=== PATIENT | male | born 1980 | race Caucasian/White ===

== ENCOUNTER 2023-06-27 13:31 | Inpatient (IN) | payer OTHER ==
[2023-06-27] MEDS ORDERED: NALOXONE 0.4 MG/ML 1 ML VIAL IV PRN (13:45)
--- NOTE | 2023-06-27 13:45 | ED ---
General Adult HPI - General Chief complaint: Alcohol Stated complaint: ETOH Time Seen by Provider: 06/27/23 13:35 Source: patient, RN/MD, EMS, RN notes reviewed, old records reviewed Mode of arrival: EMS Limitations: no limitations - History of Present Illness Initial comments: Patient is a pleasant 43-year-old male present to the emergency department as a transfer from [facility]. Patient admits to drinking alcohol heavy daily. Patient there was found to have low magnesium at 1.2 and this has been replaced. Patient did have a reported unresponsive episode prior to going to the hospital. Patient denies any significant injury. Transferring physician did have concern for patient going to torsades on the monitor. Review of Systems ROS Statement: Those systems with pertinent positive or pertinent negative responses have been documented in the HPI. ROS Other: All systems not noted in ROS Statement are negative. Constitutional: Denies: fever Eyes: Denies: eye pain ENT: Denies: ear pain Respiratory: Denies: cough, dyspnea Cardiovascular: Denies: chest pain Gastrointestinal: Denies: abdominal pain Neurological: Denies: weakness General Exam Limitations: no limitations General appearance: alert, in no apparent distress Head exam: Present: atraumatic Eye exam: Present: scleral icterus Neck exam: Present: normal inspection. Absent: tenderness Respiratory exam: Present: normal lung sounds bilaterally Cardiovascular Exam: Present: tachycardia GI/Abdominal exam: Present: soft. Absent: tenderness Extremities exam: Present: normal inspection, full ROM. Absent: tenderness Neurological exam: Present: alert, oriented X3, CN II-XII intact. Absent: motor sensory deficit Psychiatric exam: Present: normal affect, normal mood Skin exam: Present: normal color Course Vital Signs 06/27/23 13:32 Temperature 99.5 F Pulse Rate 119 H Respiratory 12 Rate Blood Pressure 147/132 O2 Sat by Pulse 100 Oximetry EKG Findings - EKG Results: EKG: interpreted by ERMD (Inferior and lateral T wave inversion), sinus rhythm, normal axis, normal QRS Medical Decision Making - Medical Decision Making Was pt. sent in by a medical professional or institution (, PA, DAY HABILITATION SUPERVISOR, urgent care, hospital, or senior living...) When possible be specific @ -Patient was transferred from [facility] for level of care. Did you speak to anyone other than the patient for history (EMS, parent, family, police, friend...)? What history was obtained from this source @ -Transferring physician Dr. Blevins Did you review nursing and triage notes (agree or disagree)? Why? @ -I reviewed and agree with nursing and triage notes Were old charts reviewed (outside hosp., previous admission, EMS record, old EKG, old radiological studies, urgent care reports/EKG's, senior living records)? Report findings @ -Chart reviewed from [facility] including labs and imaging results and history Differential Diagnosis (chest pain, altered mental status, abdominal pain women, abdominal pain men, vaginal bleeding, weakness, fever, dyspnea, syncope, headache, dizziness, GI bleed, back pain, seizure, CVA, palpatations, mental health, musculoskeletal)? @ -Differential Weakness: Hypoglycemia, shock, sepsis, hyponatremia, anemia, infection, DE, ETOH, adverse medicine reaction, overdose, stroke, this is not meant to be an all-inclusive list. EKG interpreted by me (3pts min.). @ -As above X-rays interpreted by me (1pt min.). @ -None done CT interpreted by me (1pt min.). @ -None done U/S interpreted by me (1pt. min.). @ -None done What testing was considered but not performed or refused? (CT, X-rays, U/S, labs)? Why? @ -Repeat labs will be ordered What meds were considered but not given or refused? Why? @ -None Did you discuss the management of the patient with other professionals (professionals i.e. , PA, DAY HABILITATION SUPERVISOR, lab, RT, psych nurse, social service coordinator, pad machine feeder, teacher, railroad police officer, case specialist)? Give summary @ -Sound physician practitioner Jong who will admit covering hospital call Was smoking cessation discussed for >3mins.? @ -No Was critical care preformed (if so, how long)? @ -No Were there social determinants of health that impacted care today? How? (Homelessness, low income, unemployed, alcoholism, drug addiction, transportation, low edu. Level, literacy, decrease access to med. care, long-term, rehab)? @ -No Was there de-escalation of care discussed even if they declined (Discuss DNR or withdrawal of care, Hospice)? DNR status @ -No What co-morbidities impacted this encounter? (DM, HTN, Smoking, COPD, CAD, Cancer, CVA, ARF, Chemo, Hep., AIDS, mental health diagnosis, sleep apnea, mor bid obesity)? @ -History of alcohol use Was patient admitted / discharged? Hospital course, mention meds given and route, prescriptions, significant lab abnormalities, going to OR and other pertinent info. @ -Patient transferred for level of care. Chart reviewed. Labs will be redrawn. Patient will be admitted. Admission orders written. Undiagnosed new problem with uncertain prognosis? @ -No Drug Therapy requiring intensive monitoring for toxicity (Heparin, Nitro, Insulin, Cardizem)? @ -No Were any procedures done? @ -No Diagnosis/symptom? @ -Unresponsive episode, hypomagnesemia, hypokalemia, alcohol withdrawal Acute, or Chronic, or Acute on Chronic? @ -Acute, acute, acute, acute Uncomplicated (without systemic symptoms) or Complicated (systemic symptoms)? @ -Complicated with reported torsades and transaminitis Side effects of treatment? @ -No Exacerbation, Progression, or Severe Exacerbation? @ -No Poses a threat to life or bodily function? How? (Chest pain, USA, DE, pneumonia, PE, COPD, DKA, ARF, appy, cholecystitis, CVA, Diverticulitis, Homicidal, Suicidal, threat to staff... and all critical care pts) @ -No Disposition Clinical Impression: Hypomagnesemia Disposition: ADMITTED IP TO THIS HOSP Condition: Serious Is patient prescribed a controlled substance at d/c from ED?: No Referrals: Hugo Spangler MD [Primary Care Provider] - 1-2 days Time of Disposition: 13:45
[2023-06-27] MEDS ORDERED: LORazepam 1 MG TAB PO PRN ×2 (13:46→17:51)
[2023-06-27] MEDS ORDERED: LORazepam 2 MG/ML INJ IV PRN (13:46)
[2023-06-27] MEDS: SODIUM CHLORIDE 0.9% 1,000 ML IV SCH (14:00)
[2023-06-27 14:26] LABS: Anisocytosis Slight; Basophils % (A) 1 %; Eosinophils # (A) 0.1 k/uL (0-0.7); Eosinophils % (A) 1 %; HCT 34.6 % (39.0-53.0); HGB 12.6 gm/dL (13.0-17.5); Hyperchromasia Moderate; Lymphocytes # (A) 1.3 k/uL (1.0-4.8); Lymphocytes % (A) 24 %; MCH 31.2 pg (25.0-35.0); MCHC 36.5 g/dL (31.0-37.0); MCV 85.5 fL (80.0-100.0); Mean Platelet Volume 9.1; Monocytes # (A) 0.4 k/uL (0-1.0); Monocytes % (A) 7 %; Neutrophils # (A) 3.5 k/uL (1.3-7.7); Neutrophils % (A) 66 %; Poikilocytosis Slight; RBC 4.04 m/uL (4.30-5.90); RDW 16.6 % (11.5-15.5); WBC 5.3 k/uL (3.8-10.6)
[2023-06-27 14:43] LABS: ALT 44 U/L (4-49); AST 144 U/L (17-59); African American GFR (CKD) >90 (>60 ml/min/1.73 sqM); Albumin 3.1 g/dL (3.5-5.0); Alkaline Phosphatase 98 U/L (38-126); Anion Gap 8 mmol/L; Blood Urea Nitrogen 12 mg/dL (9-20); Calcium 7.2 mg/dL (8.4-10.2); Carbon Dioxide 32 mmol/L (22-30); Chloride 94 mmol/L (98-107); Glucose 113 mg/dL (74-99); Magnesium 2.6 mg/dL (1.6-2.3); Non-African American GFR(CKD) >90 (>60 ml/min/1.73 sqM); Phosphorus 2.4 mg/dL (2.5-4.5); Sodium 134 mmol/L (137-145); Total Bilirubin 4.4 mg/dL (0.2-1.3); Total Protein 6.2 g/dL (6.3-8.2)
--- NOTE | 2023-06-27 14:58 | P.HPIM ---
History of Present Illness H&P Date: 06/27/23 History of Presenting Illness: Patient is a very pleasant 43-year-old male with a past medical history of alcohol abuse reportedly drinking a minimum of one fifth daily over the last 20 years, alcohol withdrawal seizures and hypertension. Patient was transferred to our facility from [facility] secondary to alcohol withdraw, hypomagnesemia with magnesium of 1.2, and severe hypokalemia with reported potassium of 2. Patient presented to their facility initially after an episode of loss of consciousness concerning for alcohol withdrawal seizure. Patient's significant other at bedside reports patient has known history of alcohol withdrawal seizures and that she personally witnessed seizure activity prior to "convincing him into going to the hospital" . Per ED report, [facility] also reported concerns that patient had episode of torsades on classroom monitor and was transferred to our facility for further evaluation. Rhythm strip was not available in transfer documentation. Upon arrival to our facility, patient underwent evaluation in the emergency department. Vital signs upon arrival show blood pressure 147/132, heart rate 119, respiratory rate 12, temp 99.5 F, and SpO2 of 100% on room air. EKG completed showing normal sinus rhythm at 91 bpm with diffuse T wave abnormalities in inferior and lateral leads. Labs completed and reviewed. CBC showing bicytopenia with hemoglobin of 12.6 and platelet count of 57. BMP showing hyponatremia with sodium of 134, hypokalemia with potassium of 2.5, hypochloremia with chloride of 94, and hypercarbia with bicarb of 32. Blood glucose 113. Calcium 7.2 with albumin of 3.1 with a corrected calcium of 7.9. Liver profile showing hyperbilirubinemia with total bili of 4.4 and elevated AST of 144. Patient currently resting comfortably and denies having any complaints at this time including headache, lightheadedness, dizziness, chest pain, palpitations, shortness of breath, nausea, vomiting, diaphoresis, tremors, or experiencing any numbness/tingling/weakness in his extremities. Patient admitted under our services for electrolyte abnormalities and acute alcohol withdraw. Transfer documentation reviewed from [facility] Labs completed and reviewed. CBC showing WBC count of 6.8, hemoglobin 14.3, and platelet count of 73. Coagulation profile showing elevated PT of 12.1 and INR of 1.6. BMP showing hyponatremia with sodium of 132, hypokalemia with potassium of 2.0, chloride of 85, and bicarb of 34. Liver profile showing elevated alkaline phosphatase of 116, AST of 183, and total bili of 5.3. Troponin less than 0.05. Ethanol 0 and EtOH of 0.000. EKG completed at their facility showing sinus rhythm at 90 bpm. Repeat EKG completed at their facility showing sinus tachycardia at 103 bpm Review of systems: Pertinent positives and negatives as discussed in HPI, a complete review of systems was performed and all other systems are negative. Physical exam: Vital signs reviewed and stable. General: Nontoxic, no distress and appears stated age. Derm: Skin warm and dry, normal coloration for ethnicity. Head: Atraumatic, normocephalic and symmetric. Eyes: EOMs intact, no lid lag, and anicteric sclera Mouth: no lip lesions, mucus membranes moist Cardiovascular: regular rate and rhythm with normal S1S2, no murmur, positive posterior tibial pulses bilaterally, and cap refill < 2 seconds. Lungs: Respirations even, regular, and unlabored on room air. Lungs CTA bilaterally, no rhonchi, no rales, no wheezing, and no accessory muscle usage. Abdominal: soft, nontender to palpation, no guarding, no appreciable org anomegaly Ext: ROM intact. No gross muscle atrophy, no edema, no contractures Neuro: Speech clear, face symmetrical and CN II-XII grossly intact with no noted focal neuro deficits Psych: Alert and oriented to person, place, time, and situation. Appropriate and pleasant affect. Assessment and Plan of Care: Alcohol withdrawal in active alcoholic with concerns of alcohol withdrawal seizure Severe hypokalemia, secondary to daily alcohol abuse Hypomagnesemia, secondary to daily alcohol abuse Bicytopenia with anemia and thrombocytopenia. Hyperbilirubinemia with elevated liver enzymes, likely secondary to daily alcohol abuse Concern for arrhythmia -Order placed for monitoring of CIWA scores and patient to be medicated with Ativan 0.5 mg every 4 hours as needed for CIWA score of 4-5, Ativan 1 mg every 4 hours for CIWA score of 6-7, Ativan 2 mg every 3 hours CIWA score of 8-9, and Ativan 2 mg every 2 hours forr CIWA score of 10 or greater. -Continuous IV hydration. -Thiamine 100 mg daily, Multivitamin daily and Folate 1 mg daily -Seizure, fall, aspiration, and elopement precautions in place. -Urine drug screen -Continued close monitoring of electrolytes and replace as needed. -Telemetry monitoring. Hypertension Continue daily medication regimen with carvedilol 12.5 mg twice daily and lisinopril 20 mg daily. Data and imaging reviewed: As stated above in HPI The patient is admitted with an anticipated greater than 2 midnight stay for evaluation of alcohol withdraw and severe electrolyte abnormalities CODE STATUS: Full code DVT prophylaxis: Lovenox Anticipated discharge date: Clinical course to determine Anticipated discharge place: Home versus inpatient drug and alcohol rehabilitation facility Patient was seen independently by Nurse Practitioner. This document was prepared using [employer] dictation software. Please allow for errors in aircraft maintenance technician while rare they do occur. Jong Sharif NP rendered care for this patient independently, reviewed the findings and plan as documented in the note above. I did not physically speak with or examine the patient on this date Medications and Allergies Home Medications Medication Instructions Recorded Confirmed Type carvediloL 12.5 mg PO DIRECTED 06/27/23 06/27/23 History lisinopriL [Prinivil] 20 mg PO DIRECTED 06/27/23 06/27/23 History Allergies Allergy/AdvReac Type Severity Reaction Status Date / Time No Known Allergies Allergy Verified 06/27/23 14:36 Physical Exam Osteopathic Statement: *. No significant issues noted on an osteopathic structural exam other than those noted in the History and Physical/Consult. Vitals: Vital Signs Temp Pulse Resp BP Pulse Ox 06/27/23 13:32 99.5 F 119 H 12 147/132 100 Intake and Output 06/26/23 06/27/23 06/27/23 22:59 06:59 14:59 Other: Weight 92.986 kg Results CBC & Chem 7: 06/27/23 14:07 06/27/23 14:07 Labs: Abnormal Lab Results - Last 24 Hours (Table) 06/27/23 Range/Units 14:07 RBC 4.04 L (4.30-5.90) m/uL Hgb 12.6 L (13.0-17.5) gm/dL Hct 34.6 L (39.0-53.0) % RDW 16.6 H (11.5-15.5) %
[2023-06-27 15:01] LABS: Potassium 2.5 mmol/L (3.5-5.1)
[2023-06-27] MEDS ORDERED: Potassium Replacement Protocol 1 EACH MISC MISCELLANE PRN (15:02)
[2023-06-27] MEDS: carvediloL 12.5 MG TAB PO SCH (15:22)
[2023-06-27] MEDS: lisinopriL 20 MG TAB PO SCH (15:22)
[2023-06-27] MEDS: FAMOTIDINE 20 MG TAB PO SCH (15:22)
[2023-06-27] MEDS: POTASSIUM CHLORIDE 10 MEQ in WATER FOR INJECTION 1 100ML.BAG IVPB SCH (15:23)
[2023-06-27 15:32] LABS: Ovalocytes Present
[2023-06-27 15:33] LABS: Platelet Count 57 k/uL (150-450)
[2023-06-27] MEDS: POTASSIUM CHLORIDE ER 20 MEQ TAB.ER PO STA (16:41)
[2023-06-27] MEDS: CALCIUM GLUCONATE IN NACL 1 GM in SALINE 1 100ML.BAG IVPB ONE (20:25)
[2023-06-27] MEDS: LORazepam 0.5 MG TAB PO PRN (20:25)
[2023-06-27] MEDS: HYDROcodone/APAP 5-325MG 1 EACH TAB PO PRN (23:12)
[2023-06-27] MEDS: LORazepam 1 MG TAB PO PRN (23:14)
[2023-06-28] MEDS: LORazepam 1 MG TAB PO PRN (03:12)
[2023-06-28 11:32] LABS: ALT 41 U/L (4-49); AST 117 U/L (17-59); African American GFR (CKD) >90 (>60 ml/min/1.73 sqM); Albumin 2.6 g/dL (3.5-5.0); Alkaline Phosphatase 74 U/L (38-126); Anion Gap 1 mmol/L; Blood Urea Nitrogen 11 mg/dL (9-20); Calcium 7.6 mg/dL (8.4-10.2); Carbon Dioxide 36 mmol/L (22-30); Chloride 100 mmol/L (98-107); Glucose 94 mg/dL (74-99); Magnesium 2.1 mg/dL (1.6-2.3); Non-African American GFR(CKD) >90 (>60 ml/min/1.73 sqM); Sodium 137 mmol/L (137-145); Total Bilirubin 3.6 mg/dL (0.2-1.3); Total Protein 5.2 g/dL (6.3-8.2)
[2023-06-28 11:42] LABS: Anisocytosis Slight; Basophils % (A) 1 %; Eosinophils # (A) 0.1 k/uL (0-0.7); Eosinophils % (A) 2 %; HCT 31.2 % (39.0-53.0); HGB 10.7 gm/dL (13.0-17.5); Lymphocytes # (A) 1.2 k/uL (1.0-4.8); Lymphocytes % (A) 39 %; MCH 30.9 pg (25.0-35.0); MCHC 34.4 g/dL (31.0-37.0); Mean Platelet Volume 9.7; Monocytes # (A) 0.2 k/uL (0-1.0); Monocytes % (A) 6 %; Neutrophils # (A) 1.5 k/uL (1.3-7.7); Neutrophils % (A) 51 %; Poikilocytosis Slight; RBC 3.46 m/uL (4.30-5.90); RDW 16.5 % (11.5-15.5)
[2023-06-28 11:45] LABS: Platelet Count 41 k/uL (150-450)
[2023-06-28] MEDS: ENOXAPARIN 40 MG/0.4 ML SYRINGE SQ SCH (11:53)
[2023-06-28] MEDS: THIAMINE 100 MG TAB PO SCH (12:01)
[2023-06-28] MEDS: MULTIVITAMINS, THERA 1 EACH TAB PO SCH (12:01)
[2023-06-28] MEDS: chlordiazePOXIDE 25 MG CAP PO SCH (12:01)
[2023-06-28] MEDS: FOLIC ACID 1 MG TAB PO SCH (12:01)
[2023-06-28 12:10] LABS: Potassium 2.5 mmol/L (3.5-5.1)
--- NOTE | 2023-06-28 14:44 | P.PN ---
Subjective Progress Note Date: 06/28/23 History of Presenting Illness: Patient is a very pleasant 43-year-old male with a past medical history of alcohol abuse reportedly drinking a minimum of one fifth daily over the last 20 years, alcohol withdrawal seizures and hypertension. Patient was transferred to our facility from [facility] secondary to alcohol withdraw, hypomagnesemia with magnesium of 1.2, and severe hypokalemia with reported potassium of 2. Patient presented to their facility initially after an episode of loss of consciousness concerning for alcohol withdrawal seizure. Patient's significant other at bedside reports patient has known history of alcohol withdrawal seizures and that she personally witnessed seizure activity prior to "convincing him into going to the hospital" . Per ED report, [facility] also reported concerns that patient had episode of torsades on hall monitor and was transferred to our facility for further evaluation. Rhythm strip was not available in transfer documentation. Upon arrival to our facility, patient underwent evaluation in the emergency department. Vital signs upon arrival show blood pressure 147/132, heart rate 119, respiratory rate 12, temp 99.5 F, and SpO2 of 100% on room air. EKG completed showing normal sinus rhythm at 91 bpm with diffuse T wave abnormalities in inferior and lateral leads. Labs completed and reviewed. CBC showing bicytopenia with hemoglobin of 12.6 and platelet count of 57. BMP showing hyponatremia with sodium of 134, hypokalemia with potassium of 2.5, hypochloremia with chloride of 94, and hypercarbia with bicarb of 32. Blood glucose 113. Calcium 7.2 with albumin of 3.1 with a corrected calcium of 7.9. Liver profile showing hyperbilirubinemia with total bili of 4.4 and elevated AST of 144. Patient currently resting comfortably and denies having any complaints at this time including headache, lightheadedness, dizziness, chest pain, palpitations, shortness of breath, nausea, vomiting, diaphoresis, tremors, or experiencing any numbness/tingling/weakness in his extremities. Patient admitted under our services for electrolyte abnormalities and acute alcohol withdraw. Transfer documentation reviewed from [facility] Labs completed and reviewed. CBC showing WBC count of 6.8, hemoglobin 14.3, and platelet count of 73. Coagulation profile showing elevated PT of 12.1 and INR of 1.6. BMP showing hyponatremia with sodium of 132, hypokalemia with potassium of 2.0, chloride of 85, and bicarb of 34. Liver profile showing el evated alkaline phosphatase of 116, AST of 183, and total bili of 5.3. Troponin less than 0.05. Ethanol 0 and EtOH of 0.000. EKG completed at their facility showing sinus rhythm at 90 bpm. Repeat EKG completed at their facility showing sinus tachycardia at 103 bpm Physical exam: Vital signs reviewed and stable. General: Nontoxic, no distress and appears stated age. Derm: Skin warm and dry, normal coloration for ethnicity. Head: Atraumatic, normocephalic and symmetric. Eyes: EOMs intact, no lid lag, and anicteric sclera Mouth: no lip lesions, mucus membranes moist Cardiovascular: regular rate and rhythm with normal S1S2, no murmur, positive posterior tibial pulses bilaterally, and cap refill < 2 seconds. Lungs: Respirations even, regular, and unlabored on room air. Lungs CTA bilaterally, no rhonchi, no rales, no wheezing, and no accessory muscle usage. Abdominal: soft, nontender to palpation, no guarding, no appreciable organ omegaly Ext: ROM intact. No gross muscle atrophy, no edema, no contractures Neuro: Speech clear, face symmetrical and CN II-XII grossly intact with no noted focal neuro deficits Psych: Alert and oriented to person, place, time, and situation. Appropriate and pleasant affect. Assessment and Plan of Care: Alcohol withdrawal in active alcoholic with concerns of alcohol withdrawal seizure Severe hypokalemia, secondary to daily alcohol abuse Hypomagnesemia, secondary to daily alcohol abuse Pancytopenia, secondary to daily alcohol abuse Hyperbilirubinemia with elevated liver enzymes, likely secondary to daily alcohol abuse Concern for possible arrhythmia -Continue monitoring of CIWA scores and patient to be medicated with Ativan 0.5 mg every 4 hours as needed for CIWA score of 4-5, Ativan 1 mg every 4 hours for CIWA score of 6-7, Ativan 2 mg every 3 hours CIWA score of 8-9, and Ativan 2 mg every 2 hours forr CIWA score of 10 or greater. Current CIWA 8. -Continuous IV hydration. -Thiamine 100 mg daily, Multivitamin daily and Folate 1 mg daily -Seizure, fall, aspiration, and elopement precautions in place. -Potassium was 2.5 orders placed for K-Dur 40 mEq p.o. x 1 dose and potassium chloride 10 mEq IVPB x 4 doses.. -Continued close monitoring of electrolytes and replace as needed. -Telemetry monitoring. Hypertension Continue daily medication regimen with carvedilol 12.5 mg twice daily and lisinopril 20 mg daily. Data and imaging reviewed: Vital signs reviewed. Blood pressure 121/89, heart rate 92, respiratory rate 17, temp 98.4 F, and SpO2 of 96% on room air. Morning labs completed and reviewed. CBC showing pancytopenia with WBC count of 3.0, hemoglobin 10.7, and platelet count of 41. BMP showing persistent hypokalemia with potassium of 2.5 and hypercarbia with bicarb of 36. Calcium low at 7.6 and albumin of 2.6 with corrected calcium of 8.7. Liver profile showing continued elevation but improving hyperbilirubinemia with total bili of 3.6 and AST of 117. CODE STATUS: Full code DVT prophylaxis: Lovenox Anticipated discharge date: Clinical course to determine Anticipated discharge place: Home versus inpatient drug and alcohol rehabilitation facility Patient was seen independently by Nurse Practitioner. This document was prepared using [employer] dictation software. Please allow for errors in watch electrician while rare they do occur. I reviewed the documentation as provided by the NGOZI above, who is the original author of this note. I agree with the documented assessment and plan, with the following changes: none Objective - Vital Signs Vital signs: Vital Signs Temp 98.1 F 06/28/23 04:00 Pulse 96 06/28/23 04:00 Resp 19 06/28/23 04:00 BP 100/70 06/28/23 04:00 Pulse Ox 98 06/28/23 04:00 FiO2 Intake & Output 06/27/23 06/28/23 06/28/23 18:59 06:59 18:59 Output Total 420 Balance -420 Weight 92.986 kg Output: Urine 420 Other: Voiding Method Urinal # Voids 1 1 # Bowel Movements 1 - Labs CBC & Chem 7: 06/28/23 10:12 06/28/23 10:12 Labs: Abnormal Lab Results - Last 24 Hours (Table) 06/27/23 06/27/23 Range/Units 14:07 14:07 RBC 4.04 L (4.30-5.90) m/uL Hgb 12.6 L (13.0-17.5) gm/dL Hct 34.6 L (39.0-53.0) % RDW 16.6 H (11.5-15.5) % Plt Count 57 L (150-450) k/uL Sodium 134 L (137-145) mmol/L Potassium 2.5 L* (3.5-5.1) mmol/L Chloride 94 L (98-107) mmol/L Carbon Dioxide 32 H (22-30) mmol/L Glucose 113 H (74-99) mg/dL Calcium 7.2 L (8.4-10.2) mg/dL Phosphorus 2.4 L (2.5-4.5) mg/dL Magnesium 2.6 H (1.6-2.3) mg/dL Total Bilirubin 4.4 H (0.2-1.3) mg/dL AST 144 H (17-59) U/L Total Protein 6.2 L (6.3-8.2) g/dL Albumin 3.1 L (3.5-5.0) g/dL
[2023-06-28] MEDS: POTASSIUM CHLORIDE ER 20 MEQ TAB.ER PO STA (15:09)
[2023-06-28] MEDS: POTASSIUM CHLORIDE 10 MEQ in WATER FOR INJECTION 1 100ML.BAG IVPB SCH (15:10)
[2023-06-29 09:28] LABS: Anisocytosis Slight; HCT 31.5 % (39.0-53.0); HGB 10.8 gm/dL (13.0-17.5); MCH 31.5 pg (25.0-35.0); MCHC 34.1 g/dL (31.0-37.0); MCV 92.4 fL (80.0-100.0); Mean Platelet Volume 9.5; Poikilocytosis Slight; RBC 3.41 m/uL (4.30-5.90); RDW 16.5 % (11.5-15.5); WBC 2.9 k/uL (3.8-10.6)
[2023-06-29 09:34] LABS: Platelet Count 55 k/uL (150-450)
[2023-06-29 09:36] LABS: ALT 58 U/L (4-49); AST 150 U/L (17-59); African American GFR (CKD) >90 (>60 ml/min/1.73 sqM); Albumin 2.8 g/dL (3.5-5.0); Alkaline Phosphatase 85 U/L (38-126); Anion Gap 5 mmol/L; Blood Urea Nitrogen 16 mg/dL (9-20); Carbon Dioxide 28 mmol/L (22-30); Chloride 101 mmol/L (98-107); Glucose 133 mg/dL (74-99); Magnesium 1.5 mg/dL (1.6-2.3); Non-African American GFR(CKD) >90 (>60 ml/min/1.73 sqM); Sodium 134 mmol/L (137-145); Total Bilirubin 2.8 mg/dL (0.2-1.3); Total Protein 5.5 g/dL (6.3-8.2)
[2023-06-29 09:42] LABS: Potassium 2.6 mmol/L (3.5-5.1)
[2023-06-29] MEDS: POTASSIUM CHLORIDE ER 20 MEQ TAB.ER PO STA (10:41)
[2023-06-29] MEDS: MAGNESIUM SULFATE-D5W PMX 1 GM in DEXTROSE/WATER 1 100ML.BAG IVPB SCH (10:41)
[2023-06-29] MEDS: POTASSIUM CHLORIDE 10 MEQ in WATER FOR INJECTION 1 100ML.BAG IVPB SCH (12:57)
--- NOTE | 2023-06-29 17:46 | P.PN ---
Subjective Progress Note Date: 06/29/23 Hospital Course: Patient is a very pleasant 43-year-old male with a past medical history of alcohol abuse reportedly drinking a minimum of one fifth daily over the last 20 years, alcohol withdrawal seizures and hypertension. Patient was transferred to our facility from [facility] secondary to alcohol withdraw, hypomagnesemia with magnesium of 1.2, and severe hypokalemia with reported potassium of 2. Patient presented to their facility initially after an episode of loss of consciousness concerning for alcohol withdrawal seizure. Patient's significant other at bedside reports patient has known history of alcohol withdrawal seizures and that she personally witnessed seizure activity prior to "convincing him into going to the hospital" . 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 Rhythm strip was not available in transfer documentation. Upon arrival to our facility, patient underwent evaluation in the emergency department. Vital signs upon arrival show blood pressure 147/132, heart rate 119, respiratory rate 12, temp 99.5 F, and SpO2 of 100% on room air. EKG completed showing normal sinus rhythm at 91 bpm with diffuse T wave abnormalities in inferior and lateral leads. Labs completed and reviewed. CBC showing bicytopenia with hemoglobin of 12.6 and platelet count of 57. BMP showing hyponatremia with sodium of 134, hypokalemia with potassium of 2.5, hypochloremia with chloride of 94, and hypercarbia with bicarb of 32. Blood glucose 113. Calcium 7.2 with albumin of 3.1 with a corrected calcium of 7.9. Liver profile showing hyperbilirubinemia with total bili of 4.4 and elevated AST of 144. Patient currently resting comfortably and denies having any complaints at this time including headache, lightheadedness, dizziness, chest pain, palpitations, shortness of breath, nausea, vomiting, diaphoresis, tremors, or experiencing any numbness/tingling/weakness in his extremities. Patient admitted under our services for electrolyte abnormalities and acute alcohol withdraw. Transfer documentation reviewed from [facility] Labs completed and reviewed. CBC showing WBC count of 6.8, hemoglobin 14.3, and platelet count of 73. Coagulation profile showing elevated PT of 12.1 and INR of 1.6. BMP showing hyponatremia with sodium of 132, hypokalemia with potassium of 2.0, chloride of 85, and bicarb of 34. Liver profile showing elevated alkaline phosphatase of 116, AST of 183, and total bili of 5.3. Troponin less than 0.05. Ethanol 0 and EtOH of 0.000. EKG completed at their facility showing sinus rhythm at 90 bpm. Repeat EKG completed at their facility showing sinus tachycardia at 103 bpm Physical exam: Vital signs reviewed and stable. General: Nontoxic, no distress and appears stated age. Derm: Skin warm and dry, normal coloration for ethnicity. Head: Atraumatic, normocephalic and symmetric. Eyes: EOMs intact, no lid lag, and anicteric sclera Mouth: no lip lesions, mucus membranes moist Cardiovascular: regular rate and rhythm with normal S1S2, no murmur, positive posterior tibial pulses bilaterally, and cap refill < 2 seconds. Lungs: Respirations even, regular, and unlabored on room air. Lungs CTA bilaterally, no rhonchi, no rales, no wheezing, and no accessory muscle usage. Abdominal: soft, nontender to palpation, no guarding, no appreciable organomegaly Ext: ROM intact. No gross muscle atrophy, no edema, no contractures Neuro: Speech clear, face symmetrical and CN II-XII grossly intact with no noted focal neuro deficits Psych: Alert and oriented to person, place, time, and situation. Appropriate and pleasant affect. Assessment and Plan of Care: Alcohol withdrawal in active alcoholic with concerns of alcohol withdrawal seizure Severe hypokalemia, secondary to daily alcohol abuse Hypomagnesemia, secondary to daily alcohol abuse Pancytopenia, secondary to daily alcohol abuse Hyperbilirubinemia with elevated liver enzymes, likely secondary to daily alcohol abuse Concern for possible arrhythmia -Continue monitoring of CIWA scores and patient to be medicated with Ativan 0.5 mg every 4 hours as needed for CIWA score of 4-5, Ativan 1 mg every 4 hours for CIWA score of 6-7, Ativan 2 mg every 3 hours CIWA score of 8-9, and Ativan 2 mg every 2 hours forr CIWA score of 10 or greater. -Continuous IV hydration. -Thiamine 100 mg daily, Multivitamin daily and Folate 1 mg daily -Seizure, fall, aspiration, and elopement precautions in place. -Potassium was 2.6 orders placed for K-Dur 40 mEq p.o. x 1 dose and potassium chloride 10 mEq IVPB x 4 doses.. -Magnesium 1.5, orders placed for mag sulfate 2 g IVPB -Continued close monitoring of electrolytes and replace as needed. -Telemetry monitoring. Hypertension Continue daily medication regimen with carvedilol 12.5 mg twice daily and lisinopril 20 mg daily. Data and imaging reviewed: Vital signs reviewed. Blood pressure elevated this morning at 163/116, heart rate 68, respiratory rate 18, temp 98.2 F, and SpO2 of 99% on room air. Morning labs completed and reviewed. CBC showing pancytopenia with WBC count of 2.9, hemoglobin 10.8, and platelet count of 55. BMP revealing hyponatremia with sodium of 134, hypokalemia with potassium of 2.6. Magnesium low at 1.5. Liver profile showing continued elevation of total bili of 2.8, AST of 150, and ALT of 58. CODE STATUS: Full code DVT prophylaxis: Lovenox Anticipated discharge date: Clinical course to determine Anticipated discharge place: Home versus inpatient drug and alcohol rehabilitation facility Patient was seen independently by Nurse Practitioner. This document was prepared using [employer] dictation software. Please allow for errors in major donor coordinator while rare they do occur. I reviewed the documentation as provided by the NGOZI above, who is the original author of this note. I agree with the documented assessment and plan, with the following changes: none Objective - Vital Signs Vital signs: Vital Signs Temp 97.5 F L 06/29/23 07:40 Pulse 73 06/29/23 07:40 Resp 12 06/29/23 07:40 BP 162/118 06/29/23 07:40 Pulse Ox 100 06/29/23 07:40 FiO2 Intake & Output 06/28/23 06/29/23 06/29/23 18:59 06:59 18:59 Intake Total 480 960 Output Total 500 480 Balance -20 480 Intake: Oral 480 960 Output: Urine 500 480 Other: Voiding Method Urinal Urinal # Voids 1 - Labs CBC & Chem 7: 06/30/23 10:35 06/30/23 10:35 Labs: Abnormal Lab Results - Last 24 Hours (Table) 06/28/23 06/28/23 Range/Units 10:12 10:12 WBC 3.0 L (3.8-10.6) k/uL RBC 3.46 L (4.30-5.90) m/uL Hgb 10.7 L (13.0-17.5) gm/dL Hct 31.2 L (39.0-53.0) % RDW 16.5 H (11.5-15.5) % Plt Count 41 L (150-450) k/uL Potassium 2.5 L* (3.5-5.1) mmol/L Carbon Dioxide 36 H (22-30) mmol/L Calcium 7.6 L (8.4-10.2) mg/dL Total Bilirubin 3.6 H (0.2-1.3) mg/dL AST 117 H (17-59) U/L Total Protein 5.2 L (6.3-8.2) g/dL Albumin 2.6 L (3.5-5.0) g/dL
[2023-06-30] MEDS: cloNIDine HCL 0.2 MG TAB PO STA (06:24)
[2023-06-30 10:58] LABS: Anisocytosis Slight; HCT 33.1 % (39.0-53.0); MCH 31.1 pg (25.0-35.0); MCHC 33.1 g/dL (31.0-37.0); MCV 93.8 fL (80.0-100.0); Mean Platelet Volume 9.6; Poikilocytosis Slight; RBC 3.53 m/uL (4.30-5.90); RDW 17.1 % (11.5-15.5)
[2023-06-30 11:16] LABS: Platelet Count 76 k/uL (150-450)
[2023-06-30 12:09] LABS: ALT 65 U/L (4-49); AST 147 U/L (17-59); African American GFR (CKD) >90 (>60 ml/min/1.73 sqM); Albumin 2.8 g/dL (3.5-5.0); Alkaline Phosphatase 90 U/L (38-126); Anion Gap 7 mmol/L; Blood Urea Nitrogen 13 mg/dL (9-20); Calcium 8.2 mg/dL (8.4-10.2); Carbon Dioxide 29 mmol/L (22-30); Chloride 102 mmol/L (98-107); Glucose 180 mg/dL (74-99); Magnesium 1.7 mg/dL (1.6-2.3); Non-African American GFR(CKD) >90 (>60 ml/min/1.73 sqM); Potassium 2.9 mmol/L (3.5-5.1); Sodium 138 mmol/L (137-145); Total Bilirubin 2.2 mg/dL (0.2-1.3); Total Protein 5.5 g/dL (6.3-8.2)
[2023-06-30] MEDS: POTASSIUM CHLORIDE ER 20 MEQ TAB.ER PO SCH (12:53)
--- NOTE | 2023-06-30 13:42 | P.PN ---
Subjective Progress Note Date: 06/30/23 Hospital Course: Patient is a very pleasant 43-year-old male with a past medical history of alcohol abuse reportedly drinking a minimum of one fifth daily over the last 20 years, alcohol withdrawal seizures and hypertension. Patient was transferred to our facility from [facility] secondary to alcohol withdraw, hypomagnesemia with magnesium of 1.2, and severe hypokalemia with reported potassium of 2. Patient presented to their facility initially after an episode of loss of consciousness concerning for alcohol withdrawal seizure. Patient's significant other at bedside reports patient has known history of alcohol withdrawal seizures and that she personally witnessed seizure activity prior to "convincing him into going to the hospital" . 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 Rhythm strip was not available in transfer documentation. Upon arrival to our facility, patient underwent evaluation in the emergency department. Vital signs upon arrival show blood pressure 147/132, heart rate 119, respiratory rate 12, temp 99.5 F, and SpO2 of 100% on room air. EKG completed showing normal sinus rhythm at 91 bpm with diffuse T wave abnormalities in inferior and lateral leads. Labs completed and reviewed. CBC showing bicytopenia with hemoglobin of 12.6 and platelet count of 57. BMP showing hyponatremia with sodium of 134, hypokalemia with potassium of 2.5, hypochloremia with chloride of 94, and hypercarbia with bicarb of 32. Blood glucose 113. Calcium 7.2 with albumin of 3.1 with a corrected calcium of 7.9. Liver profile showing hyperbilirubinemia with total bili of 4.4 and elevated AST of 144. Patient currently resting comfortably and denies having any complaints at this time including headache, lightheadedness, dizziness, chest pain, palpitations, shortness of breath, nausea, vomiting, diaphoresis, tremors, or experiencing any numbness/tingling/weakness in his extremities. Patient admitted under our services for electrolyte abnormalities and acute alcohol withdraw. Transfer documentation reviewed from [facility] Labs completed and reviewed. CBC showing WBC count of 6.8, hemoglobin 14.3, and platelet count of 73. Coagulation profile showing elevated PT of 12.1 and INR of 1.6. BMP showing hyponatremia with sodium of 132, hypokalemia with potassium of 2.0, chloride of 85, and bicarb of 34. Liver profile showing elevated alkaline phosphatase of 116, AST of 183, and total bili of 5.3. Troponin less than 0.05. Ethanol 0 and EtOH of 0.000. EKG completed at their facility showing sinus rhythm at 90 bpm. Repeat EKG completed at their facility showing sinus tachycardia at 103 bpm Physical exam: Vital signs reviewed and stable. General: Nontoxic, no distress and appears stated age. Derm: Skin warm and dry, normal coloration for ethnicity. Head: Atraumatic, normocephalic and symmetric. Eyes: EOMs intact, no lid lag, and anicteric sclera Mouth: no lip lesions, mucus membranes moist Cardiovascular: regular rate and rhythm with normal S1S2, no murmur, positive posterior tibial pulses bilaterally, and cap refill < 2 seconds. Lungs: Respirations even, regular, and unlabored on room air. Lungs CTA bilaterally, no rhonchi, no rales, no wheezing, and no accessory muscle usage. Abdominal: soft, nontender to palpation, no guarding, no appreciable organomegaly Ext: ROM intact. No gross muscle atrophy, no edema, no contractures Neuro: Speech clear, face symmetrical and CN II-XII grossly intact with no noted focal neuro deficits Psych: Alert and oriented to person, place, time, and situation. Appropriate and pleasant affect. Assessment and Plan of Care: Alcohol withdrawal in active alcoholic with concerns of alcohol withdrawal seizure Severe hypokalemia, secondary to daily alcohol abuse Hypomagnesemia, secondary to daily alcohol abuse Pancytopenia, secondary to daily alcohol abuse Hyperbilirubinemia with elevated liver enzymes, likely secondary to daily alcohol abuse Concern for possible arrhythmia -Continue monitoring of CIWA scores and patient to be medicated with Ativan 0.5 mg every 4 hours as needed for CIWA score of 4-5, Ativan 1 mg every 4 hours for CIWA score of 6-7, Ativan 2 mg every 3 hours CIWA score of 8-9, and Ativan 2 mg every 2 hours forr CIWA score of 10 or greater. Current CIWA 8 -Continuous IV hydration. -Thiamine 100 mg daily, Multivitamin daily and Folate 1 mg daily -Seizure, fall, aspiration, and elopement precautions in place. -Continued close monitoring of electrolytes and replace as needed. -Telemetry monitoring. Hypertension Continue daily medication regimen with carvedilol 12.5 mg twice daily and lisinopril 20 mg daily. Data and imaging reviewed: Vital signs reviewed. Pressure was elevated this morning at 170/125 with a heart rate of 69, patient's CIWA score was 8 at this time and medicated with 2 mg of Ativan with repeat blood pressure 113/80. Morning labs completed and reviewed. CBC showing pancytopenia with WBC count of 3.0, hemoglobin 11.0, platelet count of 76. BMP revealing resolution of hyponatremia with sodium of 138, persistent hypokalemia with potassium of 2.9. Magnesium low at 1.7. Liver profile showing continued elevation of total bili of 2.2, AST of 147, and ALT of 65. CODE STATUS: Full code DVT prophylaxis: Lovenox Anticipated discharge date: Likely within the next 24 hours, patient will likely require discharge home on oral potassium and magnesium supplements. Anticipated discharge place: Home Patient was seen independently by Nurse Practitioner. This document was prepared using [employer] dictation software. Please allow for errors in director of automation while rare they do occur. I reviewed the documentation as provided by the NGOZI above, who is the original author of this note. I agree with the documented assessment and plan, with the following changes: none Objective - Vital Signs Vital signs: Vital Signs Temp 98.3 F 06/30/23 05:00 Pulse 74 06/30/23 05:00 Resp 17 06/30/23 05:00 BP 174/122 06/30/23 05:00 Pulse Ox 99 06/30/23 05:00 FiO2 Intake & Output 06/29/23 06/30/23 06/30/23 18:59 06:59 18:59 Intake Total 1678 Output Total 475 440 Balance 1203 -440 Intake: Oral 1678 Output: Urine 475 440 Other: Voiding Method Urinal Urinal # Voids 1 1 - Labs CBC & Chem 7: 06/30/23 10:35 06/30/23 10:35 Labs: Abnormal Lab Results - Last 24 Hours (Table) 06/29/23 06/29/23 Range/Units 08:49 08:49 WBC 2.9 L (3.8-10.6) k/uL RBC 3.41 L (4.30-5.90) m/uL Hgb 10.8 L (13.0-17.5) gm/dL Hct 31.5 L (39.0-53.0) % RDW 16.5 H (11.5-15.5) % Plt Count 55 L (150-450) k/uL Sodium 134 L (137-145) mmol/L Potassium 2.6 L* (3.5-5.1) mmol/L Glucose 133 H (74-99) mg/dL Calcium 8.0 L (8.4-10.2) mg/dL Magnesium 1.5 L (1.6-2.3) mg/dL Total Bilirubin 2.8 H (0.2-1.3) mg/dL AST 150 H (17-59) U/L ALT 58 H (4-49) U/L Total Protein 5.5 L (6.3-8.2) g/dL Albumin 2.8 L (3.5-5.0) g/dL
[2023-06-30] MEDS: MAGNESIUM OXIDE 400 MG TAB PO STA (17:05)
[2023-06-30] MEDS: chlordiazePOXIDE 25 MG CAP PO SCH (20:33)
[2023-07-01 03:49] LABS: African American GFR (CKD) >90 (>60 ml/min/1.73 sqM); Anion Gap 2 mmol/L; Blood Urea Nitrogen 14 mg/dL (9-20); Calcium 8.1 mg/dL (8.4-10.2); Carbon Dioxide 30 mmol/L (22-30); Chloride 105 mmol/L (98-107); Glucose 102 mg/dL (74-99); Magnesium 1.6 mg/dL (1.6-2.3); Non-African American GFR(CKD) >90 (>60 ml/min/1.73 sqM); Potassium 3.6 mmol/L (3.5-5.1); Sodium 137 mmol/L (137-145)
[2023-07-01] MEDS: hydrALAZINE HCL 25 MG TAB PO STA (04:49)
[2023-07-01] MEDS: POTASSIUM CHLORIDE ER 20 MEQ TAB.ER PO SCH (09:19)
[2023-07-01] MEDS: MAGNESIUM SULFATE-D5W PMX 1 GM in DEXTROSE/WATER 1 100ML.BAG IVPB SCH (09:20)
[2023-07-01 10:25] VITALS: RESP 18; TEMP 98.8
--- NOTE | 2023-07-01 13:31 | P.DS ---
Providers Date of admission: 06/27/23 13:46 Expected date of discharge: 07/01/23 Attending physician: Yang Ledesma MD Primary care physician: Hugo Spangler MD Hospital Course: Discharge Diagnosis: Alcohol withdrawal in active alcoholic with concerns of alcohol withdrawal seizure. Patient successfully underwent medical detox and is medically stable for discharge, patient was highly recommended to avoid any and all alcohol use. Severe hypokalemia, secondary to daily alcohol abuse. Replaced. Hypomagnesemia, secondary to daily alcohol abuse. Replaced. Pancytopenia, secondary to daily alcohol abuse. Hyperbilirubinemia with elevated liver enzymes, likely secondary to daily alcohol abuse. Concern for possible arrhythmia. No arrhythmias reported from telemetry throughout hospitalization. Hypertension. Continue daily medication regimen with carvedilol 12.5 mg twice daily and lisinopril 20 mg daily. Hospital Course: Patient is a very pleasant 43-year-old male with a past medical history of alcohol abuse reportedly drinking a minimum of one fifth daily over the last 20 years, alcohol withdrawal seizures and hypertension. Patient was transferred to our facility from [facility] secondary to alcohol withdraw, hypomagnesemia with magnesium of 1.2, and severe hypokalemia with reported potassium of 2. Patient presented to their facility initially after an episode of loss of consciousness concerning for alcohol withdrawal seizure. Patient's significant other at bedside reports patient has known history of alcohol withdrawal seizures and that she personally witnessed seizure activity prior to "convincing him into going to the hospital" . 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 Rhythm strip was not available in transfer documentation. Upon arrival to our facility, patient underwent evaluation in the emergency department. Vital signs upon arrival show blood pressure 147/132, heart rate 119, respiratory rate 12, temp 99.5 F, and SpO2 of 100% on room air. EKG completed showing normal sinus rhythm at 91 bpm with diffuse T wave abnormalities in inferior and lateral leads. Labs completed and reviewed. CBC showing bicytopenia with hemoglobin of 12.6 and platelet count of 57. BMP showing hyponatremia with sodium of 134, hypokalemia with potassium of 2.5, hypochloremia with chloride of 94, and hypercarbia with bicarb of 32. Blood glucose 113. Calcium 7.2 with albumin of 3.1 with a corrected calcium of 7.9. Liver profile showing hyperbilirubinemia with total bili of 4.4 and elevated AST of 144. Patient currently resting comfortably and denies having any complaints at this time including headache, lightheadedness, dizziness, chest pain, palpitations, shortness of breath, nausea, vomiting, diaphoresis, tremors, or experiencing any numbness/tingling/weakness in his extremities. Patient admitted under our services for electrolyte abnormalities and acute alcohol withdraw. Electrolytes were replaced and patient successfully underwent medical detox. Transfer documentation reviewed from [facility] Labs completed and reviewed. CBC showing WBC count of 6.8, hemoglobin 14.3, and platelet count of 73. Coagulation profile showing elevated PT of 12.1 and INR of 1.6. BMP showing hyponatremia with sodium of 132, hypokalemia with potassium of 2.0, chloride of 85, and bicarb of 34. Liver profile showing elevated alkaline phosphatase of 116, AST of 183, and total bili of 5.3. Troponin less than 0.05. Ethanol 0 and EtOH of 0.000. EKG completed at their facility showing sinus rhythm at 90 bpm. Repeat EKG completed at their facility showing sinus tachycardia at 103 bpm Physical exam: Vital signs reviewed and stable. General: Nontoxic, no distress and appears stated age. Derm: Skin warm and dry, normal coloration for ethnicity. Head: Atraumatic, normocephalic and symmetric. Eyes: EOMs intact, no lid lag, and anicteric sclera Mouth: no lip lesions, mucus membranes moist Cardiovascular: regular rate and rhythm with normal S1S2, no murmur, positive posterior tibial pulses bilaterally, and cap refill < 2 seconds. Lungs: Respirations even, regular, and unlabored on room air. Lungs CTA bilaterally, no rhonchi, no rales, no wheezing, and no accessory muscle usage. Abdominal: soft, nontender to palpation, no guarding, no appreciable organomegaly Ext: ROM intact. No gross muscle atrophy, no edema, no contractures Neuro: Speech clear, face symmetrical and CN II-XII grossly intact with no noted focal neuro deficits Psych: Alert and oriented to person, place, time, and situation. Appropriate and pleasant affect. A total of 34 minutes of time were spent preparing this complex discharge summary. Pt was discharged on 07/01/2023 at 9:57 AM Patient was seen independently by Nurse Practitioner. This document was prepared using [employer] dictation software. Please allow for errors in operating room tech while rare they do occur. I reviewed the documentation as provided by the NGOZI above, who is the original author of this note. I agree with the documented assessment and plan, with the following changes: none Patient Condition at Discharge: Stable Plan - Discharge Summary Discharge Rx Participant: No New Discharge Prescriptions: New Thiamine [Vitamin B-1] 100 mg PO DAILY 30 Days #30 tab Folic Acid 1 mg PO DAILY 30 Days #30 tab Multivitamins, Thera [Multivitamin (formulary)] 1 each PO DAILY 30 Days #30 tab Continue carvediloL 12.5 mg PO DIRECTED lisinopriL [Prinivil] 20 mg PO DIRECTED Discharge Medication List carvediloL 12.5 mg PO DIRECTED 06/27/23 [History] lisinopriL [Prinivil] 20 mg PO DIRECTED 06/27/23 [History] Folic Acid 1 mg PO DAILY 30 Days #30 tab 07/01/23 [Rx] Multivitamins, Thera [Multivitamin (formulary)] 1 each PO DAILY 30 Days #30 tab 07/01/23 [Rx] Thiamine [Vitamin B-1] 100 mg PO DAILY 30 Days #30 tab 07/01/23 [Rx] Follow up Appointment(s)/Referral(s): Hugo Spangler MD [Primary Care Provider] - 1-2 days Patient Instructions/Handouts: Abuse of Alcohol (DC), Alcohol Withdrawal (DC) Activity/Diet/Wound Care/Special Instructions: Activity: As tolerated. Diet: Heart healthy and carb consistent diet. Avoid salts, or foods with hidden salts such as canned or boxed foods and frozen dinners. Extra salt makes your heart work harder and traps the fluid in your body for longer. Special Instructions: It is strongly recommended that you follow-up with your primary care physician, , and have repeat potassium and magnesium levels drawn in the next week. Highly recommending continued cessation of any and all alcohol use, your electrolytes were very depleted secondary to alcohol abuse. Wishing you the best of luck on your journey to sobriety. Thank you for allowing us to participate in your care, it was truly a pleasure having you for our patient!!! . Discharge/Stand Alone Forms: AA Meetings [place], Community Resources, Outpatient Counseling, Inp Substance Abuse Facilities, Personal Winder Operator Discharge Disposition: HOME SELF-CARE
[2023-07-01 14:13] VITALS: BP 150/100; PULSE 70
== END 2023-07-01 12:48 | disposition home or self-care (01) | DRG 897 ==
LOC: EC 13:31 → 3SCARD 13:46
PROVIDERS: ADMIT Student in an Organized Health Care Education/Training Program; ATTEND Student in an Organized Health Care Education/Training Program
DX: F10.239 Alcohol dependence with withdrawal, unspecified (principal); E87.1 Hypo-osmolality and hyponatremia; D61.818 Other pancytopenia; E87.6 Hypokalemia; E87.8 Other disorders of electrolyte and fluid balance, not elsewhere classified; E83.42 Hypomagnesemia; I10 Essential (primary) hypertension; R79.1 Abnormal coagulation profile; Y90.0 Blood alcohol level of less than 20 mg/100 ml; Z79.899 Other long term (current) drug therapy
CPT/HCPCS: 36415; 80048; 80053; 83735; 84100; 85025; 85027; 93005; 96361; 96365; 96366; 96375; 99285